=== PATIENT | male | born 1980 | race American Indian/Alaskan Native ===

== ENCOUNTER 2020-12-27 13:34 | Emergency (ER) | payer OTHER ==
[~2020-12-27] VITALS: Ht 172.7 cm; Wt 86.2 kg
[~2020-12-27 13:34] MED LIST: Amoxicillin500 MG PO; Bactrim Ds Tab1 EACH PO; CLIN150 PO; CYCL10 PO; DOXY100 PO; HYDACE5 PO; Keflex500 MG PO; Naprosyn500 MG PO; PENVK250; PENVK500 PO; RXHYDACE PO
[2020-12-27] MEDS ORDERED: Cleocin HCl300 MG PO (15:35)
== END 2020-12-27 16:00 | disposition home or self-care (01) ==
LOC: ER 13:34
DX: L02.512 Cutaneous abscess of left hand (principal); F17.200 Nicotine dependence, unspecified, uncomplicated
CPT/HCPCS: 36415; 73140; 87070; 87075; 87077; 87147; 87186; 87205; 96374; 99283-25

== ENCOUNTER 2022-02-27 19:22 | Emergency (ER) | payer SELFPAY ==
[~2022-02-27] VITALS: Ht 175.3 cm; Wt 77.1 kg
[~2022-02-27 19:22] MED LIST changes: +Cleocin HCl300 MG PO
== END 2022-02-27 21:49 | disposition left against medical advice (07) ==
LOC: ER 19:22
DX: R33.9 Retention of urine, unspecified (principal); F17.200 Nicotine dependence, unspecified, uncomplicated; Z53.21 Procedure and treatment not carried out due to patient leaving prior to being seen by health care provider
CPT/HCPCS: 51798; 99283

== ENCOUNTER 2024-06-27 13:15 | Emergency (ER) | payer OTHER ==
[~2024-06-27] VITALS: Ht 172.7 cm; Wt 90.7 kg
[2024-06-27 13:42] VITALS: BP 141/99
[2024-06-27 14:23] LABS: CORONAVIRUS COVID-19 AG Negative (NEGATIVE); INFLUENZA A AG Positive (NEGATIVE); INFLUENZA B AG Negative (NEGATIVE)
== END 2024-06-27 14:59 | disposition home or self-care (01) ==
LOC: ER 13:15
PROVIDERS: Student in an Organized Health Care Education/Training Program
DX: J10.1 Influenza due to other identified influenza virus with other respiratory manifestations (principal)
CPT/HCPCS: 87081; 87428-QW; 87430; 99283

== ENCOUNTER → 2025-02-07 | Outpatient (CLI) | payer OTHER ==
[2025-02-15 10:12] LABS: Stool Occult Bld Immuno 1 Negative (NEGATIVE)
== END | disposition home or self-care (01) ==
LOC: LAB 15:15 → LAB SHORT 15:15
DX: Z12.11 Encounter for screening for malignant neoplasm of colon (principal)
CPT/HCPCS: G0328